=== PATIENT | female | born 2000 | race Caucasian/White ===

== ENCOUNTER 2019-10-02 05:25 | Inpatient (IN) | payer BC, OTHER ==
[2019-10-02] MEDS: Lactated Ringer's 1,000 ML IV SCH ×2 (05:50→06:45)
[2019-10-02 05:56] VITALS: BMI 24.9
[2019-10-02] MEDS ORDERED: Methylergonovine 0.2 MG/ML VIAL IM PRN (06:23)
[2019-10-02] MEDS ORDERED: HYDROcodone/Acetaminophen 5/325 mg Tablet PO PRN ×4 (06:23→14:53)
[2019-10-02] MEDS ORDERED: Diphenoxylate HCl/Atropine Tablet PO PRN (06:23)
[2019-10-02] MEDS ORDERED: Lidocaine 1% (PF) 30 ML VIAL SC PRN (06:23)
[2019-10-02] MEDS ORDERED: Carboprost 250 MCG/ML AMP IM PRN (06:23)
[2019-10-02] MEDS ORDERED: Ibuprofen 800 MG TAB PO PRN (06:23)
[2019-10-02] MEDS ORDERED: Butorphanol Tartrate 1 MG/ML VIAL SLOW IVP PRN (06:23)
[2019-10-02] MEDS ORDERED: hydrALAZINE 20 MG/ML VIAL SLOW IVP PRN ×2 (06:23→14:53)
[2019-10-02] MEDS ORDERED: Promethazine HCl 25 MG/ML VIAL IM PRN ×2 (06:23→08:46)
[2019-10-02] MEDS ORDERED: Misoprostol 200 MCG TAB PR PRN (06:23)
[2019-10-02] MEDS ORDERED: Acetaminophen 500 MG TAB PO PRN (06:23)
[2019-10-02] MEDS ORDERED: NS w/ Oxytocin 10 units 500 ML IV SCH (06:30)
[2019-10-02] MEDS ORDERED: Penicillin G Potassium 5 MILL.UNITS VIAL ONE (06:46)
[2019-10-02] MEDS ORDERED: Penicillin G Potassium 5 MILL.UNITS in Sodium Chloride 0.9% 100 ML IVPB SCH (07:00)
[2019-10-02 07:11] LABS: Hemoglobin 12.3 g/dL (12.0-16.0); Mean Corpuscular HGB CONC 32.6 g/dL (32.0-36.0); Mean Corpuscular Hemoglobin 27.3 pg (25.0-35.0); Mean Corpuscular Volume 83.7 fL (78.0-98.0); Platelet Count 188 thou/uL (130-400); RBC Distribution Width 12.5 % (11.5-14.5); Red Blood Cell (RBC) Count 4.52 mill/uL (4.00-5.20); White Blood Cell (WBC) Count 13.2 thou/uL (4.8-10.8)
[2019-10-02 07:54] LABS: HBSAg Index 0.12 S/CO (0-0.99); Hep B Surf Ag Non-Reactive S/CO (NonReactive); Syphilis Antibody Nonreactive (Nonreactive); Syphilis Antibody Index 0.04 S/CO (<1.00 Non-Reactive)
[2019-10-02] MEDS ORDERED: Fentanyl 4 mcg/Bup 0.1% Cadd 100 ML ONE (08:12)
[2019-10-02] MEDS: Ondansetron PF 4 MG/2 ML Vial IVP PRN ×2 (08:34→12:58)
[2019-10-02] MEDS ORDERED: Acetaminophen 325 MG TAB PO PRN (08:46)
[2019-10-02] MEDS ORDERED: EPHEDRINE 25 MG/5 ML SYRINGE SLOW IVP PRN (08:46)
[2019-10-02] MEDS ORDERED: Naloxone HCl 0.4 mg/ml Vial IVP PRN ×2 (08:46)
[2019-10-02] MEDS ORDERED: diphenhydrAMINE 50 MG/ML VIAL IVP PRN (08:46)
[2019-10-02] MEDS ORDERED: Lactated Ringer's 500 ML IV PRN (08:46)
[2019-10-02] MEDS ORDERED: Ondansetron PF 4 MG/2 ML Vial IVP PRN ×2 (08:46→14:53)
[2019-10-02] MEDS ORDERED: Communication Order-Pharmacy FS SCH (09:00)
[2019-10-02] MEDS ORDERED: Fentanyl 4 mcg/Bupivacaine 0.1% Cassette 100 ML EPIDURAL SCH (09:00)
[2019-10-02] MEDS ORDERED: Penicillin G 2.5 MILL.units 2.5 MILL.UNITS in Premix Bag 1 BAG IVPB SCH (11:00)
[2019-10-02] MEDS: NS / Oxytocin 40 units/1000ml 1,000 ML IV PRN ×2 (13:19→15:52)
--- NOTE | 2019-10-02 13:35 | PDOC.LDHP ---
Labor and Delivery H&P Chief complaint: loss of fluid (at 0300, clear) HPI: 19yo at 39w6d with LOF clear since 0300, +contractions Current gestational age (weeks): 39 Due date: 10/02/19 Dating criteria: last menstrual period Grav: 1 Para: 0 Current complications: none Abnormal US findings: No Past Medical History: denies Current medications: pre- vitamins Previous surgical history: other (T&A, ear tubes) Allergies/Adverse Reactions: Allergies Allergy/AdvReac Type Severity Reaction Status Date / Time No Known Allergies Allergy Verified 10/02/19 05:59 Social history: none - Physical Exam Vital signs reviewed and normal: yes General: NAD Heart: RRR Lungs: CTAB Abdomen: gravid Extremeties: no edema FHT: category 1 [place] contractions every: 2-3min - Vaginal Exam cm dilated: 10 Effacement: 100% Station: 3+ - OB Labs Blood type: O RH: positive Antibody Screen: negative HIV: negative RPR: negative HEPSAg: negative 1 hour GCT: negative GBS: positive Urine drug screen: negative Rubella: immune - Assessment L&D Assessment: term patient in labor - Plan Plan: admit to L&D, labor augmentation if indicated, GBS antibiotic prophylaxis , informed consent obtained, anesthesia consult for pain management
[2019-10-02] MEDS ORDERED: Preparation H Ointment 28 GM TUBE PR PRN (14:53)
[2019-10-02] MEDS ORDERED: Lanolin Ointment 7 GM TUBE TOP PRN (14:53)
[2019-10-02] MEDS ORDERED: Benzocaine-Menthol 82.5 ML CAN TOP PRN (14:53)
[2019-10-02] MEDS ORDERED: Milk Of Magnesia 30 ML UDCUP PO PRN (14:53)
[2019-10-02] MEDS ORDERED: Bisacodyl 10 MG SUPP PR PRN (14:53)
[2019-10-02] MEDS ORDERED: diphenhydrAMINE 25 MG CAP PO PRN (14:53)
[2019-10-02] MEDS ORDERED: NS / Oxytocin 40 units/1000ml 1,000 ML IV SCH (15:00)
[2019-10-02] MEDS: Ferrous Sulfate 325 MG TAB PO SCH (17:37)
[2019-10-02] MEDS: Ibuprofen 800 MG TAB PO SCH (20:47)
[2019-10-02] MEDS: Docusate Calcium (SURFAK) 240 MG CAP PO SCH (20:48)
[2019-10-03] MEDS: Ibuprofen 800 MG TAB PO SCH ×2 (07:27→16:05)
[2019-10-03] MEDS ORDERED: Prenatal Vitamin 1 TAB PO SCH (09:00)
[2019-10-03] MEDS: Ferrous Sulfate 325 MG TAB PO SCH (09:17)
[2019-10-03] MEDS: Docusate Calcium (SURFAK) 240 MG CAP PO SCH (09:59)
--- NOTE | 2019-10-03 11:37 | PDOC.OPDEL ---
OB Operative/Delivery Note Delivery Dr/Surgeon: Omaira Pre-Delivery Diagnosis: active labor Weeks gestation: 39 Anesthesia: epidural - Findings A Sex: male Weight: 7 lb 1 oz - 1 min: 8 - 5 min: 9 - Additional Findings/Plan Placenta delivered: spontaneous Repaired Obstetrical Laceration: 1st degree Estimated blood loss: 50 Compilations/Other Findings: NC x 1 Post delivery plan: routine recovery
--- NOTE | 2019-10-03 11:38 | PDOC.PP ---
Post Progress Note Post Day #: 1 PO intake tolerated: yes Flatus: yes Ambulation: yes Vital Signs (12 hours) Temp Pulse Resp BP Pulse Ox 10/03/19 09:59 98.2 F 70 16 105/54 L 100 10/03/19 04:56 98.8 F 65 18 117/58 L 10/03/19 00:05 98.5 F 65 16 99/54 L Weight Weight 145 lb - Physical Examination General: NAD Respiratory: non-labored breathing Abdominal: no distention, appropriately TTP Fundus firm & at: umb Neurological: no gross focal deficits Psychiatric: normal affect Result Diagrams: 10/02/19 06:35 Additional Labs: Post Labs Blood Type O POSITIVE 10/02/19 07:22 Hep Bs Antigen Non-Reactive S/CO (NonReactive) 10/02/19 06:35 - Assessment/Plan PPD1 s/p TSVD Doing well lochia < menses Rh pos RImm DC home FU 6w
[2019-10-03 12:11] LABS: SARS-CoV-2 MS2 Positive; SARS-CoV-2 N Gene Negative; SARS-CoV-2 S Gene Negative; SARS-CoV-2 by NAA Not Detected (NotDetected); SARS-CoV-2 orf1ab Negative
[2019-10-03 13:09] VITALS: BP 108/58; TEMP 98.3
[2019-10-03] MEDS ORDERED: Adacel (T-DAP) 0.5 ML SYRINGE IM ONE (14:53)
== END 2019-10-03 17:20 | disposition home or self-care (01) | DRG 807 ==
LOC: L&D/OP 05:25 → L&D 12:16 → 3SW 16:23
PROVIDERS: ADMIT Student in an Organized Health Care Education/Training Program; ATTEND Student in an Organized Health Care Education/Training Program
PROC: 10E0XZZ Delivery of Products of Conception, External Approach (ICD-10-PCS; principal; 2019-10-02)
PROC: 0HQ9XZZ Repair Perineum Skin, External Approach (ICD-10-PCS; 2019-10-02)
DX: O69.81X0 Labor and delivery complicated by cord around neck, without compression, not applicable or unspecified (principal); Z37.0 Single live birth; Z3A.39 39 weeks gestation of pregnancy; O70.0 First degree perineal laceration during delivery; O99.824 Streptococcus B carrier state complicating childbirth; Z11.59 Encounter for screening for other viral diseases
CPT/HCPCS: 36415; 51702; 85027; 86780; 86850; 86900; 86901; 87340; 87635; 99285; J2001; J2405; J2540; J2590; U0003